=== PATIENT | male | born 1995 | race Asian ===

== ENCOUNTER 2025-04-07 13:55 | Outpatient (AMB) | payer OTHER, SELFPAY ==
--- NOTE | 2025-04-07 13:57 | MHC.OFFVIS ---
Intake Visit Reasons: MRI Review Allergies No Known Allergies Allergy (Verified 04/04/25 09:28) HPI Comments Details: 29 yo man with epilepsy with generalized seizures (falling, LOC, convulsion, frothing, tongue bite) of unknown etiology since he was 15 years old usually controlled by oxcarbazepine and resulting in breakthrough seizures if not taken. He talked about having pain in the back of his head and sometime in his right eye in sometime light sensitivity. He had been to [facility] where head CT and CTA of cervical spine was done. I reviewed his head CT that did not reveal any significant abnormality. He was asking if more testing can be done to rule out brain tumor. More recently, headaches were happening but not that frequently. [facility] Medical History (Updated 04/07/25 @ 14:17 by Lorenzo Anand MD) Generalized seizure disorder Epilepsy Physical Exam Neuro Other: Mental Status: Alert and oriented to person, place, and time. Normal attention. Normal spontaneous speech, fluency, and comprehension. No obvious issues with mood and memory. Affect is appropriate. Cranial Nerves: CN II: Visual mcdonald full to confrontation, visual acuity intact. CN III, IV, : Pupils equal, round, reactive to light and accommodation. Extraocular movements are normal. CN V: Facial sensation is normal. CN VII: Facial movements symmetrical. CN VIII: Hearing intact to bedside conversation is normal. CN IX, X: Palate elevates symmetrically. CN XI: Shoulder shrug and head turn symmetrical. CN XII: Tongue midline without atrophy or fasciculations. Extrapyramidal: Full facial expressions and blinking. No rigidity. Movements are appropriate with no tremor or abnormality. Speech: Normal; no dysarthria or tremor. Assessment & Plan Assessment & Plan (1) Epilepsy: Comment: CT brain WO at [facility] in December 2024: CT C spine at [facility] in December 2024: OK (reported) Code(s): G40.909 - Epilepsy, unspecified, not intractable, without status epilepticus Category: Medical Qualifiers: Epilepsy type: unspecified Intractability: not intractable Status epilepticus: without status epilepticus Qualified Code(s): G40.909 - Epilepsy, unspecified, not intractable, without status epilepticus (2) Generalized seizure disorder: Code(s): G40.309 - Generalized idiopathic epilepsy and epileptic syndromes, not intractable, without status epilepticus Category: Medical (3) Migraine without aura: Code(s): G43.009 - Migraine without aura, not intractable, without status migrainosus Category: Medical Qualifiers: Status migrainosus presence: without status migrainosus Intractability: not intractable Qualified Code(s): G43.009 - Migraine without aura, not intractable, without status migrainosus Plan Impression: a: Generalized seizure disroder controlled with oxcarbazepine b: Migraine w/o aura c: Paranoid personality Rec: a: oxcarbazepine 450mg bid b: Sumatriptan 50mg as needed c: Behavioral medicine consultation Medications: New oxcarbazepine 450 mg (3 x 150 mg) PO BID 540 tabs 1RF sumatriptan succinate 50 mg orally one a day as needed PRN; do not exceed 4 doses per 24 hrs 10 tabs 5RF migraine headache 30 days Coding Level of Care Code Est Pt Level 4 (62624) Diagnoses Nonintractable epilepsy without status epilepticus, unspecified epilepsy type G40.909 Epilepsy type: unspecified Intractability: not intractable Status epilepticus: without status epilepticus Generalized seizure disorder G40.309 Migraine without aura and without status migrainosus, not intractable G43.009 Status migrainosus presence: without status migrainosus Intractability: not intractable
--- OUTSIDE RECORDS SUMMARY | 2025-04-07 15:42 | XMS_ITS | Clinical Summary ---
Author Organization [facility] Address [address] [place] [id number] Phone Care Team Providers Care Corporate Risk Analyst Name Role Phone Unavailable Primary Care Provider Unavailabl e Allergies No known active allergies Medications OXcarbazepine 300 MG tablet Take 1 tablet by mouth 2 (two) times a day. 11 7 Active FLUTICASONE 50 MCG/ACT nasal sprayIndications: Chronic seromucinous otitis media of both ears SPRAY 1 SPRAY INTO EACH NOSTRIL DAILY 1 Units 6 0 Active Active Problems Problem Noted Date Diagnosed Date Chronic seromucinous otitis media of both ears 0 09/01/2017 Overview (09/01/2017): Persistent fluids with possible chronic low grade infection. Will Treat with antibiotic and flonase. Keep ENT appt as planned Abnormal thyroid function test 05/04/2017 Overview (05/04/2017): Slightly elevated TSH 4.8 With normal free T4. Would repeat in 3 mo at weight recheck Generalized anxiety disorder 03/23/2017 Overview (03/23/2017): Daily symptoms, self medicates with MJ, advised melatonin, counseling, and consider SSRI. Pt agrees. Recheck in month. Assessment & Plan (03/23/2017 12:18 PM EDT): Daily symptoms, self medicates with MJ, advised melatonin, counseling, and consider SSRI. Pt agrees. Recheck in month. Weight loss 03/23/2017 Overview (03/23/2017): Loss of 30lb since last year. Somewhat intentional with change in eating habits. No red flags in terms of concerning symptoms or findings on exam. Will check PPD today given prolonged stay in [place] and weight check 1 mo. Assessment & Plan (04/21/2017 11:25 AM EDT): Weight about stable down 1 lb, No symptoms which suggest this is normal weight loss and he had gain a lot of weight prior while on depekote. Will do some screening labs to be sure and f/u in 2 mo Assessment & Plan (03/23/2017 12:17 PM EDT): Somewhat intentional with change in eating habits. No red flags in terms of concerning symptoms or findings on exam. Will check PPD today given prolonged stay in [place] and weight check 1 mo. 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 Owens. 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 Harrell which improved vision. Assessment & Plan (03/23/2017 11:50 AM EDT): Boaz, no further concern. Seizure disorder 07/16/2015 Overview (03/21/2017): Boaz, first one in 2010, was followed by Dr Merino, Last Seizure on September 2011. Was on depakote but is tapering and changing to Trileptal per Dr. Goodman. Seizure again 01/2016, seen in ED. Seeing Dr. Hardwick neurologist. Now doing well with Trileptal. Assessment & Plan (09/01/2017 5:13 PM EST): Last seizure 2 years ago Assessment & Plan (03/23/2017 11:50 AM EDT): Continue current medication and routine follow up with your neurologist. Prior medication caused tremor and weight gain, both of these are improved. Seizure free for over a year. Resolved Problems Problem Noted Date Diagnosed Date Resolved Date Pediatric body mass index (B MO) of 85th percentile to less than 95th percentile for age 0107/16/2015 03/23/2017 Essential tremor 07/16/2015 03/23/2017 Overview (03/21/2017): Changing from Depakote to Trileptal per Dr. Goodman. Immunizations Immunization Administration Dates Next Due BCG 1995 DTaP 04/18/2000, 7,1995,07/29,1995 HPV Vaccine 9 Valent 01/22/2015 HPV, Quadrivalent 06/18/2014,09/11/2012 Hep A, Adult 07/16/2015 Hep A, ped/adol 01/12/2011 Hep B, ped/adol 07/25/1997,02/14/1997,01/14/1997 Hib (PRP-T) 05/25/1997 Influenza, injectable, quadr ivalent, preservative free 06/18/2014 Influenza, intranasal, quadrivalent 07/16/2015 MMR 11/13/2002,11/15/1996 Measles 04/04/1996 Meningococcal Conj (Menactra) MCV4P 06/18/2014,0 10/16/2007 OPV 11/15/1996, 6,1995,06/26 PPD Test 03/23/2017 Tdap 10/16/2007 Varicella 10/16/2007,04/18/2000 Family History Relation Name Status Comments Cousin 1 Alive Cousin 2 Alive Father Alive Father's Brother Alive Father's Sister Alive Maternal Grandfather Alive Maternal Grandmother Alive Mother Alive Other 1 Alive Other 2 Alive Other 3 Alive Other 4 Alive Other 5 Alive Other 6 Alive Other 7 Alive Other 8 Alive Other 9 Alive Other 10 Alive Other 11 Alive Other 12 Alive Paternal Grandfather Alive Paternal Grandmother Alive Social History Tobacco Use Types Packs/Day Years Used Date Smoking Tobacco: Some Days Smokeless Tobacco: Never Tobacco Cessation:Counseling Given: Yes Comments:mixes some tobacco into marijuana cigarettes about once a day Alcohol Use Standard Drinks/Week Comments No 0 (1 standard drink = 0.6 oz pur e alcohol) Sex and Gender Information Value Date Recorded Sex Assigned at Not on file Legal Sex Male 10:48 PM EST Gender Identity Not on file Sexual Orientation Not on file Last Filed Vital Signs Vital Sign Reading Time Taken Comments Blood Pressure 112/69 03/23/2017 11:19 AM EDT Pulse 72 03/23/2017 11:19 AM EDT Temperature 36.9 C (98.4 F) 09/01/2017 4:52 PM EST Respiratory Rate - - Oxygen Saturation - - Inhaled Oxygen Concentration - - Weight 62.5 kg (137 lb 12.8 oz) 09/01/2017 4:52 PM EST Height 170.8 cm (5' 7.25 ) 03/23/2017 1 1:19 AM EDT Body Mass Index 21.42 03/23/2017 11:19 AM EDT Plan of Treatment Health Maintenance Due Date Last Done Comments DTaP,Tdap,and Td Vaccines (7 - Td or Tdap) 10/15/2017 10/16/2007, 04/18/2000, 11/29/1996, Additional history exists Influenza Vaccines (#1) 2025 07/16/2015, 06/18 COVID-19 Vaccine ( season) 2025 IPV Vaccines Completed 11/15/1996, 03/1996, 1995, Additional history exists HIB Vaccines Completed 05/25/1997 Hepatitis B Vaccines Completed 07/25/1997, 02/14/1997, 01/14/1997 MMR Vaccines Completed 11/13/2002, 11/15/1996 Varicella Vaccines Completed 10/16/2007, 04/18/2000 Meningococcal Vaccine Aged Out 06/18/2014, 008 No longer eligible based on patient's age to complete this topic HPV Vaccines Completed 01/22/2015, 06/09, 09/11/2012 Hepatitis A Vaccines Completed 07/16/2015, 01/13/20 11 Men B Vaccine Aged Out No longer elig ible based on patient's age to complete this topic Pneumococcal Vaccine Aged Out No long er eligible based on patient's age to complete this topic
--- OUTSIDE RECORDS SUMMARY | 2025-04-07 15:42 | XMS_ITS | Encounter Summary ---
Author Organization [facility] Address [address] [place] [phone] Phone Care Team Providers Care Manager Personal Name Role Phone Unavailable Primary Care Provider Unavailabl e Reason for Visit * Reason Comments Med Refill Encounter Details Date Type Department Care Team (Late st Contact Info) Description 10/21/2020 Refill [facility] - [place] [address] [place] [address] Abran Ferguson MD [address] [place] [address] Chronic seromucinous otitis media of both ears Social History Tobacco Use Types Packs/Day Years Used Date Smoking Tobacco: Some Days Smokeless Tobacco: Never Comments:mixes some tobacco into marijuana cigarettes about once a day Alcohol Use Standard Drinks/Week Comments No 0 (1 standard drink = 0.6 oz pur e alcohol) Sex and Gender Information Value Date Recorded Sex Assigned at Not on file Legal Sex Male 10:48 PM EST Gender Identity Not on file Sexual Orientation Not on file documented as of this encounter Miscellaneous Notes * Telephone Encounter - Abran Ferguson MD - 10/21/2020 8:28 PM EDT REFUSED: transfer out 11/2019, should contact new PCP documented in this encounter Plan of Treatment Not on file documented as of this encounter Visit Diagnoses Diagnosis Chronic seromucinous otitis media of both ears documented in this encounter
--- OUTSIDE RECORDS SUMMARY | 2025-04-07 15:42 | XMS_ITS | Encounter Summary ---
Author Organization [facility] Address [address] [place] [phone] Phone Care Team Providers Care Smocking Machine Operator Name Role Phone Luis Spears MD Primary Care Provider Unavailabl e Encounter Details Date Type Department Care Team (Late st Contact Info) Description 02/15/2017 Conversion Encounter [facility] - [address], [address] [place] [address] Luis Spears MD Social History Tobacco Use Types Packs/Day Years Used Date Smoking Tobacco: Never Assessed Sex and Gender Information Value Date Recorded Sex Assigned at Not on file Legal Sex Male 10:48 PM EST Gender Identity Not on file Sexual Orientation Not on file documented as of this encounter Plan of Treatment Not on file documented as of this encounter Visit Diagnoses Not on filedocumented in this encounter Care Teams Smocking Machine Operator Relationship Specialty Start Date End Date Luis Spears MD PCP - General 08/30/16 12/10/19 documented as of this encounter
--- OUTSIDE RECORDS SUMMARY | 2025-04-07 15:42 | XMS_ITS | Encounter Summary ---
Author Organization [facility] Address [address] [place] [phone] Phone Care Team Providers Care Degree Clerk Name Role Phone Luis Spears MD Primary Care Provider Unavailabl e Reason for Visit * Reason Comments Med Refill Encounter Details Date Type Department Care Team (Late st Contact Info) Description 09/24/2019 Refill [facility] - [place] [address] [place] [address] Yajaira De La Cruz, CAM [address] [place] [address] Chronic seromucinous otitis media of both ears [...] of both ears documented in this encounter Care Teams Degree Clerk Relationship Specialty Start Date End Date Luis Spears MD PCP - General 08/30/16 12/10/19 documented as of this encounter
== END 2025-04-07 14:21 | disposition home or self-care (01) ==
LOC: HO.HSM 13:56
PROVIDERS: PCP Internal Medicine; Visit Provider Psychiatry & Neurology Neurology
DX: G40.909 Epilepsy, unspecified, not intractable, without status epilepticus (principal); G40.309 Generalized idiopathic epilepsy and epileptic syndromes, not intractable, without status epilepticus; G43.009 Migraine without aura, not intractable, without status migrainosus
CPT/HCPCS: 99214

== ENCOUNTER → 2025-04-07 13:55 | Outpatient (BNVA) | payer OTHER, SELFPAY | PROVIDERS: PCP Internal Medicine; Visit Provider Psychiatry & Neurology Neurology | DX: G40.309 Generalized idiopathic epilepsy and epileptic syndromes, not intractable, without status epilepticus (principal); G43.009 Migraine without aura, not intractable, without status migrainosus; F60.0 Paranoid personality disorder | CPT/HCPCS: 99212 ==